=== PATIENT | male | born 1950 | race Caucasian/White ===

== ENCOUNTER → 2016-10-14 | Outpatient (CLI) | payer OTHER ==
[~2016-10-14] MED LIST: ASPI81 PO; ASPI81CH PO; FISH1200 PO; FISH500C PO; HYDR25TA5 PO; LIPI80TA16 PO; LOSA100T PO; LOVA40TA PO; MULT1TAB46 PO; TAB-TAB PO; TEST-55; VITA100C4 PO; VITA400C70 PO
[2016-10-14 10:58] LABS: BLOOD, URINE NEG (NEG); GLUCOSE,URINE NEG (NEG); KETONE, URINE NEG (NEG); NITRITE,URINE NEG (NEG); URINE COLOR LIGHT-YELLOW (YELLW/STRAW)
[2016-10-14 11:04] LABS: PROTHROMBIN TIME - PATIENT 10.8 SEC (9.8-11.6)
[2016-10-14 11:09] LABS: COMMENT (UR) CULT NOT INDICATED; CULTURE IF INDICATED CULT NOT INDICATED
[2016-10-14 11:12] LABS: BICARBONATE 24.5 MEQ/L (21.0-32.0); POTASSIUM 4.2 MEQ/L (3.5-5.1)
--- NOTE | 2016-10-14 11:58 | RADRPT ---
EXAM DATE/TIME: 10/14/2016 11:15 [place] COMPARISON: No previous studies available for comparison. INDICATIONS : Evaluate for penumona, pneumothorax, or communicable disease. Pre op for arthroscopy of left knee. MEDICAL HISTORY : Hypercholesterolemia. Deep venous thrombosis. Hypertension. PE. Skin CA. SURGICAL HISTORY : Surgeries to both knees. ENCOUNTER: Initial ACUITY: 1 day PAIN SCORE: 0/10 LOCATION: chest FINDINGS: PA and lateral views of the chest demonstrate the lungs to be symmetrically aerated without evidence of mass, infiltrate or effusion. The cardiomediastinal contours are unremarkable. Osseous structure s are intact. CONCLUSION: Normal examination. Devon Hogan MD on October 14, 2016 at 11:57 Board Certified Radiologist. This report was verified electronically.
== END ==
LOC: CPRE 10:13
PROVIDERS: ATTEND Orthopaedic Surgery
DX: Z01.812 Encounter for preprocedural laboratory examination (principal); Z01.811 Encounter for preprocedural respiratory examination; M22.42 Chondromalacia patellae, left knee; S83.242D Other tear of medial meniscus, current injury, left knee, subsequent encounter; X58.XXXD Exposure to other specified factors, subsequent encounter
CPT/HCPCS: 36415; 71020; 80048; 81001; 85610

== ENCOUNTER → 2016-10-22 | Day surgery (SDC) | payer OTHER ==
--- NOTE | 2016-10-18 12:35 | MH ---
cc: CELSA MANZO M.D. DATE OF ADMISSION: 10/22/2016 ADMITTING DIAGNOSIS Medial meniscus tear of the left knee, chondromalacia left knee, chondromalacia patellae left knee, effusion left knee, and pain left knee. HISTORY OF PRESENT ILLNESS The patient is a 65-year-old white male who has had a rather lengthy history of pain involving his left knee. He had noted the gradual onset of his discomfort unrelated to injury or unusual activity. Within the past 15 years he had undergone previous orthopedic evaluation with Dr. Ott that did subsequently result in two arthroscopic surgeries for which the patient reported no appreciable improvement following either operation. He required repeat aspirations of his left knee following the initial procedure that subsequently resulted in the second procedure that was complicated by postoperative pulmonary embolus. The patient did not seek any further disposition at that time and over the following years continued to experience a waxing and waning with swelling and soreness about his left knee. Within the previous year he underwent a more current orthopedic evaluation at which time he was treated with a cortisone injection which afforded him approximately one month of relief. His symptoms recurred thereafter and he underwent further disposition with an alternate orthopedic surgeon but did not desire to return to that particular office for any further disposition. He presented to the undersigned physician in May of this year indicating recurrent episodes of swelling about the left knee that resulted in limited mobility for which he conformed to modified activities especially as related to walking exercises. He had been able to ride his bicycle as part of his exercise program without difficulty or discomfort. He had been taking an 81 mg aspirin tablet daily as part of his medical management. He also reported having undergone an arthrotomy of his right knee at 19 years of age for history of a meniscal tear with an uneventful recovery being noted at that time. At the time of his initial evaluation a previously completed MRI scan which had been accomplished in February 2016 had noted mucoid degeneration of the anterior cruciate ligament as well as a horizontal tear involving the posterior horn of the medial meniscus and mild tricompartmental chondromalacia with a moderate size joint effusion. Current x-ray studies did not demonstrate any significant degenerative changes with uniformity of medial and lateral compartments. Findings were reviewed and treatment options discussed. The pros and cons of continuing with conservative management versus undergoing recurrent arthroscopic surgery were reviewed. Emphasis was made regarding the fact that the decision to proceed with surgery would be left entirely to the patient's discretion. At that time the patient elected to continue with conservative management and was followed on an outpatient basis thereafter. He returned to the office few months thereafter indicating that he was continuing to note soreness generalized about his left knee that was interfering with his ambulatory activities. He tried to follow an exercise program including riding his bicycle as well as using a paddle board both of which were associated with soreness about the knee following this exercise routine. He felt that he was approaching a point in time where he is ready to proceed with recurrent arthroscopic surgery as had been discussed and in compliance with his wishes he is currently being admitted in order that the above be accomplished. PAST MEDICAL HISTORY His past medical history, hospitalizations and surgeries in addition to the arthrotomy of his right knee and the arthroscopic surgery of his left knee included: 1. Tonsillectomy. 2. Bilateral LASIK surgery. 3. Dental implants. 4. Colonoscopy. 5. 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 6. Medical management for pulmonary embolus. His medical illnesses include: 1. Elevated cholesterol. 2. Hypertension. MEDICATIONS Current medications: 1. Lovastatin 40 mg daily. 2. 81 mg aspirin tablet daily. 3. Losartan 100 mg daily. 4. Testosterone one gram daily. 5. Multivitamin daily. 6. Vitamin-E daily. 7. Fish oil daily. 8. Hydrochlorothiazide 25 mg daily. ALLERGIES The patient indicates a drug allergy to PENICILLIN WHICH HAS BEEN ASSOCIATED WITH RASH FORMATION. REVIEW OF SYSTEMS He does wear glasses, primarily for reading purposes. Denies headache, seizure or syncope. No epistaxis. There is occasional sinus congestion. Auditory acuity intact. No tinnitus. No bleeding gums. He has dental implants. No dysphagia. Denies cough, shortness of breath, upper respiratory infection, pneumonia or tuberculosis. No angina or heart disease. Medically managed for hypertension. His appetite is good. Bowel movements are regular. No hepatitis, gallbladder disease, ulcers or hemorrhoids. He had a urinary tract infection as a teenager. No kidney stones. No history of fractures. No psychiatric illness. His remaining review of systems is unremarkable and noncontributory. FAMILY HISTORY The patient has been for 20 years. One daughter in good health. Family history is positive for hypertension, emphysema, breast and gastric cancer. SOCIAL HISTORY The patient completed a law degree. 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 He denies active use of tobacco. Ethanol consumption socially. PHYSICAL EXAMINATION Height 6 feet. Weight 255 pounds. GENERAL: An alert, oriented and responsive 65-year-old white male who sits quietly upon the examination table with no obvious distress. HEAD, EYES, EARS, NOSE, AND THROAT: Pupils are equally round and reactive to light. Extraocular movements full. Sclera clear. External nares clear. External auditory canals clear. Dental intact with implants in place. Mucous membranes pink and moist. Pharynx clear. NECK: Supple. Active range of motion with no appreciable pain. Carotid pulse palpable bilaterally. Trachea midline. Thyroid without enlargement. LUNGS: Clear to auscultation and percussion. BACK: No CVA tenderness. No discomfort throughout the dorsolumbar spine. HEART: Regular rhythm. No murmur or gallop. ABDOMEN: Soft, nontender. Bowel sounds present. RECTAL: Per primary care physician. EXTREMITIES: Left Knee: There is a mild fullness about the left knee consistent with an intraarticular effusion. Medial joint line tenderness without palpable deformity. Apprehension and compression sign negative. 0-110 degree range of motion actively accomplished. No ligamentous instability. Joaquin test and drawer sign negative. Pivot shift and Cayla sign positive for medial compartment pain. Straight-leg raising negative at 80 degrees. Satisfactory mobility of the left hip with no associated pain. No pretibial edema. Homans sign negative. Distal sensory intact. Independent gait. NEUROLOGIC: Cranial nerves II through XII grossly intact. IMPRESSION Medial meniscus tear of the left knee, tricompartmental chondromalacia left knee, effusion left knee, pain left knee. PLAN Arthroscopic surgery and possible arthrotomy, left knee. The nature of the planned surgical procedure, the potential complications and risks associated, the expectations of surgery and the consent form were thoroughly reviewed with the patient prior to his admission to the hospital. Anuj has indicated his full understanding regarding all of the above and given consent to proceed with treatment as outlined. Medical evaluation and clearance for surgery completed by his primary care physician, Dr. Dheeraj Jack. Celsa Manzo MD NBS/BT /11:44 AM /12:17 PM
[~2016-10-22] VITALS: Ht 182.9 cm; Wt 116.7 kg
[~2016-10-22] MED LIST changes: +ACETAMINOPHEN 1000 MG/100 ML VIAL IV ONE; +ACETAMINOPHEN/HYDROcodone 325 MG/7.5 MG TAB PO PRN; -ASPI81 PO; +CHLORHEXIDINE GLUCONATE 2 % 1 PACK (2 CLOTHS) TOPICAL PRN; +DO NOT ADM ANY ANTICOAGULANT DRUGS PRN; +FAMOTIDINE 20 MG/2 ML VIAL ONE; -FISH500C PO; +INSULIN HUMAN REGULAR 1,000 UNITS/10 ML VIAL SQ PRN; +KETOROLAC TROMETHAMINE 60 MG/2 ML (IM) VIAL IM ONE; +LACTATED RINGER'S 1000 ML IV PRN; +LIDOCAINE HCL 2% PF SOLN 10 ML VIAL INFIL ONE; +LIDOCAINE HCL 2% PF SOLN 10 ML VIAL ONE; -LIPI80TA16 PO; +METOPROLOL TARTRATE 25 MG TAB PO PRN; +MIDAZOLAM HCL 2 MG/2 ML VIAL ONE; +MORPHINE SULFATE 10 MG/ML INJ IM PRN; +ONDANSETRON HCL 4 MG/2 ML VIAL IV PUSH ONE; +POVIDONE IODINE 5% (ANTISEPSIS KIT) 4 APPLICATIONS EACH NARE PRN; +POVIDONE IODINE 7.5% SCRUB 118 ML BOTTLE TOPICAL SCH; +PROMETHAZINE INJ 25 MG/ML VIAL IM PRN; +PROPOFOL 200 MG/20 ML AMP IV ONE; +SODIUM CHLORID 0.9% 500 ML IV PRN; -TAB-TAB PO; +TRIAMCINOLONE ACETONIDE 40 MG/ML VIAL I-ARTICULR ONE; +TRIAMCINOLONE ACETONIDE 40 MG/ML VIAL ONE; +VANCOMYCIN 1000 MG/NS 250 ML (for <70 kg) IV SCH; -VITA400C70 PO; +ePHEDrine/NS 25 MG/5 ML SYR IV ONE; +fentaNYL CITRATE 250 MCG/5 ML AMP ONE
[2016-10-22 05:53] VITALS: BP 114/73; PULSE 73; RESP 18; TEMP 98.2; O2SAT 96
[2016-10-22 11:05] VITALS: BP 118/63; PULSE 66; RESP 18; TEMP 98.1; O2SAT 96
--- NOTE | 2016-10-25 13:58 | MP ---
cc: CELSA MANZO DATE OF SURGERY 10/22/16 PREOPERATIVE DIAGNOSIS 1. Medial meniscus tear of the left knee 2. Chondromalacia left knee 3. Chondromalacia patellae left knee 4. Effusion left knee 5. Pain of the left knee. POSTOPERATIVE DIAGNOSIS 1. Medial meniscus tear of the left knee 2. Chondromalacia left knee 3. Chondromalacia patellae left knee 4. Effusion left knee 5. Pain of the left knee. PROCEDURE Partial medial meniscectomy left knee with chondroplasty of the patellofemoral joint. SURGEON Melany Manzo MD ANESTHESIA General by LMA FORMAT Following the induction of satisfactory general anesthesia by LMA insertion as completed per the Department of Anesthesia, examination of the left knee revealed a satisfactory range of motion with no appreciable ligamentous instability. The extremity proper was positioned in the surgical scheduler knee pool, prepped with Betadine solution and draped into a sterile field in the routine manner. Prior to initiation of the actual procedure, the standard time-out protocol was completed. All parameters were appropriately addressed and confirmed by operating room personnel. Arthroscopic instrumentation was introduced through stab wound utilizing cannula with sharp and blunt trocar, the inflow irrigation by way of a medial suprapatellar portal, the arthroscope through a lateral parapatellar portal, a probe through a medial parapatellar portal. Examination of the suprapatellar pouch revealed generalized fibrotic reaction throughout the suprapatellar region with some associated banding that was consistent with prior history of surgery. Within the patellofemoral articulation, there was obvious articular irregularity with fissuring of the articular surface that was consistent with chondromalacia. Within the medial compartment, a degenerative tear involving the posterior horn of the medial meniscus with a secondary component in the anterior horn region being identified. There were minimal degenerative changes along the articular surface of the femoral condyle and tibial plateau. Within the intercondylar region, the anterior cruciate ligament was identified and noted to be intact. Examination of the lateral compartment did reveal some proliferative synovium and what appeared to be some reactive changes about the anterior horn of the lateral meniscus, but the structure was otherwise noted to be intact. Utilizing a 3.8 Saber resector through the medial portal a partial medial meniscectomy was accomplished as well as limited debridement throughout the associated articular surfaces. The shaver was thereafter oriented into the suprapatellar region with the previously identified fibrotic tissue was resected and thereafter a generalized chondroplasty of the patellofemoral joint was completed. Upon completion of same, the joint space was thoroughly lavaged and suctioned dry. An intra-articular Kenalog lidocaine injection was completed. Portal sites were reapproximated with Steri-Strips over which Xeroform gauze and a bulky dry sterile dressing were placed. Anesthesia was discontinued. The patient thus transferred to a hospital stretcher, returned to the recovery room in satisfactory condition having tolerated his operative procedure well. Estimated blood loss was less than 5 mL. MD SEBASTIÁN Sherman/ /9:49 AM /1:53 PM
== END | disposition home or self-care (01) ==
LOC: HSDC 05:14
PROVIDERS: ATTEND Orthopaedic Surgery
DX: M23.222 Derangement of posterior horn of medial meniscus due to old tear or injury, left knee (principal); M94.262 Chondromalacia, left knee; M25.462 Effusion, left knee; I10 Essential (primary) hypertension; E78.00 Pure hypercholesterolemia, unspecified; Z85.820 Personal history of malignant melanoma of skin
CPT/HCPCS: 01400; 29881; J0131; J1885; J2250; J2405; J3010; J3301; J3370; J7050; J7120